=== PATIENT | female | born 1985 | race Caucasian/White ===

== ENCOUNTER 2020-07-11 05:30 | Inpatient (IN) | payer BC ==
[2020-07-11 06:47] VITALS: BMI 28.1
[2020-07-11] MEDS ORDERED: Promethazine HCl 25 MG/ML VIAL IM PRN ×2 (07:18→09:32)
[2020-07-11] MEDS ORDERED: Diphenoxylate HCl/Atropine Tablet PO PRN ×2 (07:18)
[2020-07-11] MEDS ORDERED: Acetaminophen 500 MG TAB PO PRN (07:18)
[2020-07-11] MEDS ORDERED: Lidocaine 1% (PF) 30 ML VIAL SC PRN (07:18)
[2020-07-11] MEDS ORDERED: hydrALAZINE 20 MG/ML VIAL SLOW IVP PRN ×2 (07:18→13:48)
[2020-07-11] MEDS ORDERED: Methylergonovine 0.2 MG/ML VIAL IM PRN (07:18)
[2020-07-11] MEDS ORDERED: Ibuprofen 800 MG TAB PO PRN (07:18)
[2020-07-11] MEDS ORDERED: HYDROcodone/Acetaminophen 5/325 mg Tablet PO PRN (07:18)
[2020-07-11] MEDS ORDERED: Butorphanol Tartrate 1 MG/ML VIAL SLOW IVP PRN (07:18)
[2020-07-11] MEDS ORDERED: Misoprostol 200 MCG TAB PR PRN (07:18)
[2020-07-11] MEDS ORDERED: Ondansetron PF 4 MG/2 ML Vial IVP PRN ×2 (07:18→09:32)
[2020-07-11] MEDS ORDERED: Carboprost 250 MCG/ML AMP IM PRN (07:18)
[2020-07-11] MEDS: Lactated Ringer's 1,000 ML IV SCH ×2 (07:20→09:23)
[2020-07-11] MEDS ORDERED: NS w/ Oxytocin 10 units 500 ML IV SCH (07:30)
[2020-07-11] MEDS ORDERED: Fentanyl 4 mcg/Bup 0.1% Cadd 100 ML ONE (08:06)
[2020-07-11 08:15] LABS: Hemoglobin 12.4 g/dL (12.0-16.0); Mean Corpuscular HGB CONC 34.6 g/dL (32.0-36.0); Mean Corpuscular Hemoglobin 32.6 pg (27.0-31.0); Mean Corpuscular Volume 94.2 fL (78.0-98.0); Mean Platelet Volume 10.8 fL (7.4-10.4); Platelet Count 125 thou/uL (130-400); RBC Distribution Width 14.1 % (11.5-14.5); Red Blood Cell (RBC) Count 3.79 mill/uL (4.20-5.40); White Blood Cell (WBC) Count 8.1 thou/uL (4.8-10.8)
[2020-07-11 08:58] LABS: HBSAg Index 0.18 S/CO (0-0.99); Hep B Surf Ag Non-Reactive S/CO (NonReactive)
[2020-07-11 09:30] LABS: Syphilis Antibody Nonreactive (Nonreactive); Syphilis Antibody Index 0.04 S/CO (<1.00 Non-Reactive)
[2020-07-11] MEDS ORDERED: diphenhydrAMINE 50 MG/ML VIAL IVP PRN (09:32)
[2020-07-11] MEDS ORDERED: EPHEDRINE 25 MG/5 ML SYRINGE SLOW IVP PRN (09:32)
[2020-07-11] MEDS ORDERED: Acetaminophen 325 MG TAB PO PRN (09:32)
[2020-07-11] MEDS ORDERED: Naloxone HCl 0.4 mg/ml Vial IVP PRN ×2 (09:32)
[2020-07-11] MEDS ORDERED: Lactated Ringer's 500 ML IV PRN (09:32)
[2020-07-11] MEDS ORDERED: Communication Order-Pharmacy FS SCH (09:45)
[2020-07-11] MEDS ORDERED: Fentanyl 4 mcg/Bupivacaine 0.1% Cassette 100 ML EPIDURAL SCH (09:45)
[2020-07-11] MEDS: NS / Oxytocin 40 units/1000ml 1,000 ML IV PRN ×2 (11:25→12:41)
[2020-07-11] MEDS ORDERED: Bupivacaine/Epinephrine 0.25% 30 ML VIAL ONE (11:27)
--- NOTE | 2020-07-11 11:41 | PDOC.OPDEL ---
OB Operative/Delivery Note Delivery Dr/Surgeon: Kenney Pre-Delivery Diagnosis: elective induction Procedure/Post Delivery Dx: spontaneous vaginal delivery Weeks gestation: 39 Anesthesia: epidural - Findings A Sex: male - 1 min: 8 - 5 min: 9 - Additional Findings/Plan Placenta delivered: spontaneous Repaired Obstetrical Laceration: 1st degree Estimated blood loss: 105ml qbl Post delivery plan: routine recovery
[2020-07-11] MEDS ORDERED: Preparation H Ointment 28 GM TUBE PR PRN (13:48)
[2020-07-11] MEDS ORDERED: Lanolin Ointment 7 GM TUBE TOP PRN (13:48)
[2020-07-11] MEDS ORDERED: traMADol HCl 50 MG TAB PO PRN (13:48)
[2020-07-11] MEDS ORDERED: Misoprostol 200 MCG TAB VAG PRN (13:48)
[2020-07-11] MEDS ORDERED: Bisacodyl 10 MG SUPP PR PRN (13:48)
[2020-07-11] MEDS ORDERED: Milk Of Magnesia 30 ML UDCUP PO PRN (13:48)
[2020-07-11] MEDS ORDERED: NS / Oxytocin 40 units/1000ml 1,000 ML IV SCH (13:48)
[2020-07-11] MEDS ORDERED: diphenhydrAMINE 25 MG CAP PO PRN (13:48)
[2020-07-11] MEDS: Ibuprofen 800 MG TAB PO SCH ×2 (18:21→21:28)
[2020-07-11] MEDS: Ferrous Sulfate 325 MG TAB PO SCH (18:22)
[2020-07-11] MEDS: Docusate Calcium (SURFAK) 240 MG CAP PO SCH (21:28)
[2020-07-11] MEDS: Acetaminophen 325 MG TAB PO PRN (22:59)
[2020-07-12] MEDS: Ibuprofen 800 MG TAB PO SCH ×3 (05:40→21:14)
[2020-07-12] MEDS: Ferrous Sulfate 325 MG TAB PO SCH ×2 (07:26→15:42)
--- NOTE | 2020-07-12 07:48 | PDOC.PP ---
Post Progress Note Post Day #: 1 PO intake tolerated: yes Flatus: yes Ambulation: yes Vital Signs (12 hours) Temp Pulse Resp BP 07/12/20 05:35 98.1 F 55 L 14 111/63 07/11/20 23:40 98.1 F 54 L 14 114/54 L 07/11/20 20:45 97.8 F 64 15 120/64 Weight Weight 164 lb - Physical Examination Abdominal: + bowel sounds, no distention, appropriately TTP Extremities: negative homans (B) Result Diagrams: 07/11/20 07:36 Additional Labs: Post Labs Blood Type A POSITIVE 07/11/20 08:51 Hep Bs Antigen Non-Reactive S/CO (NonReactive) 07/11/20 07:36 - Assessment/Plan Post day 1--doing well. Proboable discharge today if baby released. F/u 6 weeks.
[2020-07-12] MEDS: Docusate Calcium (SURFAK) 240 MG CAP PO SCH ×2 (08:02→21:14)
[2020-07-12] MEDS: Prenatal Vitamin 1 TAB PO SCH (08:02)
[2020-07-12] MEDS: Acetaminophen 325 MG TAB PO PRN ×2 (08:02→18:02)
[2020-07-12] MEDS ORDERED: Adacel (T-DAP) 0.5 ML SYRINGE IM ONE (09:00)
[2020-07-13] MEDS: Acetaminophen 325 MG TAB PO PRN ×2 (00:07→16:31)
[2020-07-13] MEDS: Ibuprofen 800 MG TAB PO SCH ×2 (05:54→14:10)
[2020-07-13 08:13] VITALS: BP 119/69; TEMP 98
--- NOTE | 2020-07-13 08:14 | PDOC.PP ---
Post Progress Note Post Day #: 2 PO intake tolerated: yes Flatus: yes Ambulation: yes Vital Signs (12 hours) Temp Pulse Resp BP Pulse Ox 07/13/20 08:13 98.0 F 53 L 20 119/69 99 Weight Weight 164 lb - Physical Examination Abdominal: no distention, appropriately TTP Extremities: negative homans (B) Result Diagrams: 07/11/20 07:36 Additional Labs: Post Labs Blood Type A POSITIVE 07/11/20 08:51 Hep Bs Antigen Non-Reactive S/CO (NonReactive) 07/11/20 07:36 - Assessment/Plan post day 2--doing well. Discharge to B&B if baby needs more phototherapy.
[2020-07-13] MEDS: Ferrous Sulfate 325 MG TAB PO SCH ×2 (08:36→15:20)
[2020-07-13] MEDS: Prenatal Vitamin 1 TAB PO SCH (09:31)
[2020-07-13] MEDS: Docusate Calcium (SURFAK) 240 MG CAP PO SCH (09:31)
== END 2020-07-13 17:45 | disposition home or self-care (01) | DRG 807 ==
LOC: L&D-LIB 05:43 → 3SW 14:04
PROVIDERS: ADMIT Obstetrics & Gynecology; ATTEND Obstetrics & Gynecology
PROC: 10E0XZZ Delivery of Products of Conception, External Approach (ICD-10-PCS; principal; 2020-07-11)
PROC: 10907ZC Drainage of Amniotic Fluid, Therapeutic from Products of Conception, Via Natural or Artificial Opening (ICD-10-PCS; 2020-07-11)
PROC: 3E033VJ Introduction of Other Hormone into Peripheral Vein, Percutaneous Approach (ICD-10-PCS; 2020-07-11)
PROC: 0HQ9XZZ Repair Perineum Skin, External Approach (ICD-10-PCS; 2020-07-11)
DX: O70.0 First degree perineal laceration during delivery (principal); Z37.0 Single live birth; Z3A.39 39 weeks gestation of pregnancy
CPT/HCPCS: 36415; 51702; 85027; 86780; 86850; 86900; 86901; 87340; J2590